=== PATIENT | female | born 1980 | race African-American/Black ===

== ENCOUNTER 2019-12-10 12:17 | Emergency (ER) | payer SELFPAY ==
[2019-12-10 12:25] VITALS: BP 179/91
[2019-12-10] MEDS ORDERED: CLONIDINE HCL 0.1 MG TABLET PO ONE (12:28)
--- NOTE | 2019-12-10 12:33 | ER Document Report ---
HPI - HPI Time Seen by Provider: 12/10/19 12:28 Onset: Other Onset/Duration: Waxing and waning Quality of pain: Achy Associated Symptoms: Diarrhea - DERM Notes: This 39-year-old female presented to the emergency room today stating that she has high blood pressure headache generalized fatigue she is coming off of Suboxone last had some 5 days ago she had been weaning herself off. Blood pressure is 179/91 in the triage area the headache is described as dull and frontal consistent with headache she has had pressure previously in the past. She has no fever no nausea no vomiting no photophobia no petechiae Past Medical History - General Information source: Patient - Social History Smoking Status: Current Every Day Smoker Cigarette use (# per day): No Chew tobacco use (# tins/day): No Smoking Education Provided: No Family History: None Vertical Provider Document - CONSTITUTIONAL Agree With Documented VS: Yes - INFECTION CONTROL TRAVEL OUTSIDE OF THE [place] IN LAST 30 DAYS: No - HEENT HEENT: Atraumatic, PERRLA - NECK Neck: Normal Inspection - RESPIRATORY Respiratory: Breath Sounds Normal - CARDIOVASCULAR Cardiovascular: Regular Rate, Regular Rhythm Pulses: Normal: Brachial, Radial, Carotid, Femoral - GI/ABDOMEN Gastrointestinal: Abdomen Soft, Abdomen Non-Tender - REPRODUCTIVE Female Genitalia: Normal Inspection - BACK Back: Normal Inspection - MUSCULOSKELETAL/EXTREMETIES Musculoskeletal/Extremeties: MAEW - NEURO Level of Consciousness: Awake, Alert - DERM Integumentary: Warm, Dry Course - Re-evaluation Re-evalutation: 12/10/19 12:30 No nausea no vomiting scant diarrhea generalized aches she is 5 days from her last dose of Suboxone which was one quarter of her normal dose and she had been weaning herself off. Not tremulous ambulatory with a rhythmic and steady gait awake alert and oriented x4. - Vital Signs Vital signs: Temp Pulse Resp BP Pulse Ox 99.2 F 80 17 179/91 H 100 12/10/19 12:23 12/10/19 12:23 12/10/19 12:23 12/10/19 12:23 12/10/19 12:23 Discharge - Discharge Clinical Impression: Withdrawal complaint Hypertension Qualifiers: Hypertension type: unspecified Qualified Code(s): I10 - Essential (primary) hypertension Disposition: HOME, SELF-CARE Prescriptions: Hydrochlorothiazide [Hydrodiuril 25 mg Tablet] 25 mg PO QAM #30 tablet Amlodipine Besylate [Norvasc 10 mg Tablet] 10 mg PO DAILY #30 tablet
== END 2019-12-10 12:39 | disposition home or self-care (01) ==
LOC: ER 12:17
DX: R51 Headache (principal); R53.83 Other fatigue; I10 Essential (primary) hypertension; R19.7 Diarrhea, unspecified; F17.200 Nicotine dependence, unspecified, uncomplicated
CPT/HCPCS: 99283

== ENCOUNTER 2020-04-18 04:07 | Emergency (ER) | payer SELFPAY ==
[2020-04-18 04:14] VITALS: BP 172/100
--- NOTE | 2020-04-18 05:17 | RADIOLOGY REPORT (SQ) ---
EXAM: XR Left Hip With Pelvis When Performed, 2 Views EXAM DATE/TIME: 04/18/2020 4:54 AM CLINICAL HISTORY: The patient is 40 years old and is Female; bone pain TECHNIQUE: Two views of the left hip with pelvis when performed. COMPARISON: No relevant prior studies available. FINDINGS: BONES/JOINTS: Right total hip prosthesis in place. There is moderate narrowing at the superior aspect of the left hip joint space. There is also subchondral cystic change at the left hip. Cystic changes are also noted at the pubic symphysis. No dislocation. No acute fracture visualized. SOFT TISSUES: No significant soft tissue abnormalities visualized. IMPRESSION: Degenerative changes of the left hip. No acute findings visualized.
--- NOTE | 2020-04-18 06:21 | ER Document Report ---
ED General - General Chief Complaint: Groin Pain Stated Complaint: LEFT HIP PAIN Time Seen by Provider: 04/18/20 06:03 Primary Care Provider: CADEN MOBLEY MD [ACTIVE PROVISIONAL STAFF] - Follow up as needed TRAVEL OUTSIDE OF THE [place] IN LAST 30 DAYS: No - HPI Notes: Patient is a 40-year-old female who presents to the emergency department for evaluation of left hip pain. Is been ongoing since September. She states it feels like a pulling and tearing pain. It starts in her inguinal region, radiates up into her hip joint, then occasionally around into her left buttock. She denies any bowel or bladder incontinence, no saddle anesthesia, no focal numbness or weakness. She states that she has had "tears" repaired in both of her hips. She had to have her right hip replaced since then. She states the pain feels similar to when she had to have her hip replaced in the past. Is worsened by ambulation, seems to be better with activity. She states she was taking ibuprofen and BC powder, but did offer little in the way of relief, so she stopped taking anything. No fevers or chills. No nausea or vomiting. No injury to the area. - Related Data Allergies/Adverse Reactions: levofloxacin [From Levaquin] Allergy (Verified 12/10/19 12:25) tramadol Allergy (Verified 12/10/19 12:25) Home Medications: Amlodipine, HCTZ Past Medical History - General Information source: Patient - Social History Smoking Status: Current Every Day Smoker Family History: None Patient has homicidal ideation: No - Past Medical History Cardiac Medical History: Reports: Hx Hypertension Skin Medical History: Reports Other - Hidradenitis suppurativa Past Surgical History: Reports: Hx Orthopedic Surgery - Right hip replacement, left knee replacement, bilateral carpal tunnel, Other - Hidradenitis suppurativa surgery from left shoulder and right axilla Review of Systems - Review of Systems Musculoskeletal: See HPI -: Yes All other systems reviewed and negative Physical Exam - Vital signs Vitals: Temp Pulse Resp BP Pulse Ox 98.4 F 81 14 172/100 H 100 04/18/20 04:13 04/18/20 04:13 04/18/20 04:13 04/18/20 04:13 04/18/20 04:13 - Notes Notes: This is a pleasant 40-year-old female who appears her stated age, no acute distress. Head is normocephalic and atraumatic. Pupils are equal round, reactive to light. Heart is regular rate and rhythm, lungs are clear auscultation bilaterally. Patient has an antalgic gait, with flexion at the left hip. She has full active and passive range of motion of the left hip, although it does elicit some pain. Neurovascularly intact distally. She is tender over the inguinal ligament and the left greater trochanter. No associated skin changes. Course - Re-evaluation Re-evalutation: 04/18/20 06:23 Patient presents to the emergency department for evaluation of left hip pain. She is told her x-ray results, which do reveal osteoarthritic changes. I will refer her to a local orthopod, as her last surgeries were done in [place]. I will send her home with a short course of some pain medication as well as a prescription strength anti-inflammatory. She is given instructions on osteoarthritis. She is to return to the ED with worsening or new concerning symptoms of any sort. - Vital Signs Vital signs: Temp Pulse Resp BP Pulse Ox 98.4 F 81 14 172/100 H 100 04/18/20 04:13 04/18/20 04:13 04/18/20 04:13 04/18/20 04:13 04/18/20 04:13 Discharge - Discharge Clinical Impression: Osteoarthritis of left hip Qualifiers: Osteoarthritis type: unspecified Qualified Code(s): M16.12 - Unilateral primary osteoarthritis, left hip Condition: Stable Disposition: HOME, SELF-CARE Instructions: Osteoarthritis ([facility]) Additional Instructions: Take medications as prescribed. Follow-up with orthopedics for further evaluation. Return to the emergency department if you develop worsening or new concerning symptoms of any sort. Referrals: CADEN MOBLEY MD [ACTIVE PROVISIONAL STAFF] - Follow up as needed
== END 2020-04-18 06:46 | disposition home or self-care (01) ==
LOC: ER 04:07
DX: M16.12 Unilateral primary osteoarthritis, left hip (principal); M25.552 Pain in left hip; F17.200 Nicotine dependence, unspecified, uncomplicated; I10 Essential (primary) hypertension; Z79.899 Other long term (current) drug therapy; Z96.641 Presence of right artificial hip joint; Z88.1 Allergy status to other antibiotic agents; Z88.6 Allergy status to analgesic agent
CPT/HCPCS: 99283

== ENCOUNTER 2020-05-06 10:25 | Emergency (ER) | payer OTHER ==
--- NOTE | 2020-05-06 10:53 | ER Document Report ---
HPI - HPI Patient complains to provider of: Left Shoulder Pain Time Seen by Provider: 05/06/20 10:47 Pain Level: 5 Context: 40-year-old female past medical history significant for hypertension presents to the emergency room complaining of left shoulder pain that started on awakening Tuesday morning. She denies any trauma or injury. No heavy lifting pushing pulling or tugging. No medications for pain. Patient is right-handed. 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 Denies any chance of . Associated Symptoms: None Exacerbated by: Movement Relieved by: Denies Similar symptoms previously: No Recently seen / treated by doctor: No - ROS Systems Reviewed and Negative: Yes All other systems reviewed and negative - CONSTITUTIONAL Constitutional: DENIES: Fever, Chills - NEURO Neurology: DENIES: Weakness - CARDIOVASCULAR Cardiovascular: DENIES: Chest pain - RESPIRATORY Respiratory: DENIES: Trouble Breathing, Coughing - REPRODUCTIVE LMP: perimeno, sep 2019 Reproductive: DENIES: : - MUSCULOSKELETAL Musculoskeletal: REPORTS: Extremity pain - lt shoulder - DERM Skin Color: Normal Skin Problems: None Past Medical History - General Information source: Patient - Social History Smoking Status: Current Every Day Smoker Chew tobacco use (# tins/day): No Frequency of alcohol use: Occasional Drug Abuse: None Family History: None Patient has homicidal ideation: No - Past Medical History Cardiac Medical History: Reports: Hx Hypertension Past Surgical History: Reports: Hx Orthopedic Surgery - Right hip replacement, left knee replacement, bilateral carpal tunnel, Other - Hidradenitis suppurativa surgery from left shoulder and right axilla Vertical Provider Document - CONSTITUTIONAL Agree With Documented VS: Yes Exam Limitations: No Limitations General Appearance: Mild Distress - INFECTION CONTROL TRAVEL OUTSIDE OF THE [place] IN LAST 30 DAYS: No - HEENT HEENT: Atraumatic, Normocephalic - NECK Neck: Normal Inspection, Supple, Thyroid Normal - RESPIRATORY Respiratory: Breath Sounds Normal, No Respiratory Distress, Chest Non-Tender - CARDIOVASCULAR Cardiovascular: Regular Rate, Regular Rhythm, No Murmur - MUSCULOSKELETAL/EXTREMETIES Musculoskeletal/Extremeties: Tender - Patient is refusing to allow me to move her left shoulder secondary to pain. There is tenderness over the left AC joint. Tenderness over the left posterior shoulder. There is no obvious deformity noted. 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 Positive left radial pulse. Capillary refill less than 3 seconds. Neurovascularly intact. - DERM Integumentary: Warm, Dry, No Rash Course - Re-evaluation Re-evalutation: 05/06/20 11:30 Patient refused any pain medication in the emergency room. Reviewed negative x- ray results with patient. Sling applied by nursing staff as documented. Counseled to use heat 20 minutes 3 times a day. Will discharge home with a prescription for Flexeril. Recommend outpatient follow-up with orthopedics.. On-call physician was provided. Patient was given strict return to the emergency room guidelines. Return for any new or worsening symptoms. All questions were answered. Patient verbalized understanding and agrees with plan of care. 05/06/20 11:45 05/06/20 12:00 - Vital Signs Vital signs: Temp Pulse Resp BP Pulse Ox 98.2 F 90 18 157/106 H 100 05/06/20 10:34 05/06/20 10:34 05/06/20 10:34 05/06/20 10:34 05/06/20 10:34 - Diagnostic Test Radiology reviewed: Reports reviewed Procedures - Immobilization Left Shoulder Time completed: 11:52 Pre-Proc Neuro Vasc Exam: Normal Immobilizer type: Sling Post-Proc Neuro Vasc Exam: Normal Alignment checked and good: Yes Discharge - Discharge Clinical Impression: Left shoulder pain Qualifiers: Chronicity: acute Qualified Code(s): M25.512 - Pain in left shoulder Hypertension Qualifiers: Hypertension type: unspecified Qualified Code(s): I10 - Essential (primary) hypertension Condition: Stable Disposition: HOME, SELF-CARE Instructions: High Blood Pressure ([facility]), Myalagia (Muscle Pain) ([facility]), Exercise Program for the Shoulder ([facility]) Additional Instructions: Use heat 20 minutes 3 times a day. Tylenol and or Motrin along with the Flexeril for pain. Outpatient follow-up with orthopedics as discussed. Outpa tient follow-up with primary care physician for management of your hypertension. Return to the emergency room for any new or worsening symptoms. Prescriptions: Cyclobenzaprine HCl [Flexeril 10 mg Tablet] 10 mg PO TIDP PRN #15 tab PRN Reason: Forms: Elevated Blood Pressure, Return to Work Referrals: ELOINA DEE MD [ACTIVE STAFF] - Follow up in 3-5 days (Call as soon as possible for an outpatient follow-up appointment for your hypertension.) AMINA GALICIA MD [ACTIVE STAFF] - Follow up tomorrow (Call tomorrow for an outpatient follow-up appointment for your shoulder pain.)
--- NOTE | 2020-05-06 11:25 | RADIOLOGY REPORT (SQ) ---
EXAM DESCRIPTION: SHOULDER LEFT 2 OR MORE VIEWS IMAGES COMPLETED DATE/TIME: 05/06/2020 11:07 am REASON FOR STUDY: pain COMPARISON: None. NUMBER OF VIEWS: Three views. TECHNIQUE: Internal rotation, external rotation, and Y view images acquired of the left shoulder. LIMITATIONS: None. FINDINGS: MINERALIZATION: Normal. BONES: No acute fracture. JOINTS: No dislocation. VISUALIZED LUNGS AND RIBS: No pneumothorax or rib fracture. SOFT TISSUES: No radiopaque foreign body. OTHER: No other finding. IMPRESSION: No acute osseous abnormality of the left shoulder. TECHNICAL DOCUMENTATION: JOB ID: [id number] 2010 [employer]- All Rights Reserved Reading location - IP/workstation name: [email or web address]
[2020-05-06 11:59] VITALS: BP 158/98
== END 2020-05-06 11:59 | disposition home or self-care (01) ==
LOC: ER 10:25
DX: M25.512 Pain in left shoulder (principal); I10 Essential (primary) hypertension; F17.200 Nicotine dependence, unspecified, uncomplicated
CPT/HCPCS: 99283

== ENCOUNTER → 2020-07-18 | Outpatient (CLI) | payer BC ==
--- NOTE | 2020-07-18 16:49 | RADIOLOGY REPORT (SQ) ---
EXAM DESCRIPTION: MRI LT UPPER JOINT WITHOUT IMAGES COMPLETED DATE/TIME: 07/18/2020 12:00 pm REASON FOR STUDY: PAIN IN LEFT SHOULDER M25.512 PAIN IN LEFT SHOULDER left shoulder pain, decrease d range of motion, clicking, popping, radiating pain and weakness. Patient woke with pain in 2019. No known injury. COMPARISON: Shoulder radiograph, 06/06/2020. TECHNIQUE: Left Shoulder images acquired and stored on PACS. Multiplanar imaging to include fat sens itive sequences such as T1, water sensitive sequences such as FST2/STIR, cartilage sensitive sequence s such as FSPD/gradient-echo sequences. LIMITATIONS: None. FINDINGS: BONE MARROW AND CORTEX: No worrisome bone lesions or marrow replacement. No occult fractur es. JOINT OR BURSAL EFFUSION: No joint effusion. Small amount of fluid surrounds the biceps tendon. Sma ll amount of fluid in the subcoracoid bursa. No significant sub acromion/subdeltoid bursal fluid. GLENO-HUMERAL ARTICULATION: Normal articulation. No subluxation. No cystic change. No osteophytes or cartilage loss. ACROMION AND AC JOINT: No down-sloping or distal spur. Sub-acromial space maintained. No significa nt AC joint arthropathy. ROTATOR CUFF AND INTERVAL: No significant tear or signal alteration. No cuff muscle atrophy. No rotator interval tear. No rotator interval thickening to suggest adhesive capsulitis. LABRUM AND BICEPS LABRAL COMPLEX: Intact. No labral tear. Intra-articular long-head biceps tendon n ormal. Distal biceps in normal location in bicipital groove. REMAINDER OF LABRUM AND IGHL : No gross tear or paralabral cyst formation. Labral evaluation is less than optimal without joint distention. No thickening of IGHL to suggest adhesive capsulitis. PERIARTICULAR AND ADJACENT SOFT TISSUES: No masses or abnormal nodes. OTHER: No other significant finding. IMPRESSION: Small amount of fluid in the subcoracoid bursa. Small amount of fluid surrounds the bic eps tendon. Findings could be seen with bursitis. No rotator cuff tear or acute abnormality. TECHNICAL DOCUMENTATION: JOB ID: [id number] 2010 [employer]- All Rights Reserved Reading location - IP/workstation name: [email or web address]
== END ==
LOC: RAD 12:20
PROVIDERS: ATTEND Physician Assistant
DX: M25.512 Pain in left shoulder (principal)